=== PATIENT | female | born 1985 | race Caucasian/White ===

== ENCOUNTER 2018-05-14 06:28 | Day surgery (SDC) | payer OTHER ==
[~2018-05-14] VITALS: Ht 162.6 cm; Wt 50.1 kg
[2018-05-14] VITALS (10 sets, daily range): BP systolic 101–112; BP diastolic 57–69; PULSE 68–88; RESP 14–25; Ht 162.6 cm; Wt 50.1 kg
[~2018-05-14 06:28] MED LIST: PREN1TAB49 PO
[2018-05-14] MEDS ORDERED: SEVOFLURANE 15 MIN ONE (07:00)
[2018-05-14] MEDS ORDERED: LACTATED RINGER'S 1,000 ML IV SCH (10:00)
--- NOTE | 2018-05-14 11:55 | PREAC ---
Date/Time of Note Date/Time of Note DATE: 05/14/18 TIME: 11:52 Anesthesia Eval and Record Evaluation Time Pre-Procedure Interview DATE: 05/14/18 TIME: 11:52 Age 33 Sex female NPO: 8 hrs Preoperative diagnosis cervical dysplasia Planned procedure leep Past Medical History Past Medical History: None Surgery & Anesthesia Issues No known issue Meds Anticoagulation: No Beta Del within 24 hr: No Reason Beta Del not given: Pt. not on B-Del Discontinued Reported Medications Vits W-Ca,Fe,Fa(<1MG) () 1 Tab Tablet, 1 TAB PO DAILY 11/16/11 Current Medications Lactated Ringer's 1,000 ml @ 25 mls/hr Q24H IV ; Start 05/14/18 at 10:00 Ferric Subsulfate (monsel's) 8 gm IN SURGERY ONCE TOP ; Start 05/14/18 at 12:00; Stop 05/14/18 at 12:01 Meds reviewed: Yes Allergies Coded Allergies: No Known Allergy (Verified , 05/14/18) Allergies Reviewed: Yes Labs/Studies Labs Reviewed: Reviewed by anesthesiologist Result Diagram: 05/14/18 0850 Laboratory Tests 05/14/18 08:50 Blood Bank Test 05/14/18 08:50 Antibody Screen NEGATIVE Blood Type O NEGATIVE test: Negative Pre-procedure Exam Last vitals Vital Signs Date Temp Pulse Resp B/P (MAP) Pulse Ox O2 O2 Flow FiO2 Time Delivery Rate 05/14/18 96.8 68 16 106/58 98 Room Air 09:01 (74) Airway: Adequate mouth opening, Adequate thyromental dist Mallampati: Mallampati I Teeth: Normal Lung: Normal Heart: Normal ASA Physical Status ASA physical status: 1 Emergency: None Pre-operative Attestations Prior to commencing anesthesia and surgery, the patient was re-evaluated, there was verification of: *The patient's identity *The results of appropriate recent lab work and preoperative vital signs *The above evaluation not changing prior to induction *Anesthetic plan, risk benefits, alternative and complications discussed with patient/family; questions answered; patient/family understands, accepts and wishes to proceed. RAFAEL PASTRANA DO May 14, 2018 11:55
[2018-05-14] MEDS ORDERED: ETOMIDATE 20 MG INJ ONE (11:58)
[2018-05-14] MEDS ORDERED: LIDOCAINE 2% (SDV) 5 ML INJ ONE (11:58)
[2018-05-14] MEDS ORDERED: PROPOFOL 20 ML ONE (11:59)
[2018-05-14] MEDS ORDERED: MIDAZOLAM 1 MG/ML 2 ML INJ ONE (11:59)
[2018-05-14] MEDS ORDERED: FERRIC SUBSULFATE 8 GM VIAL TOP ONE ×2 (12:00→12:31)
[2018-05-14] MEDS ORDERED: CEFAZOLIN 1 GM INJ ONE (12:09)
[2018-05-14] MEDS ORDERED: EPHEDrine SULFATE 50 MG/5 ML SYG ONE (12:11)
[2018-05-14] MEDS ORDERED: ONDANSETRON 4 MG INJ ONE (12:11)
[2018-05-14] MEDS ORDERED: LIDOCAINE 1%/EPI (1:100,000) (MDV) 20 ML ONE (12:23)
[2018-05-14] MEDS ORDERED: LIDOCAINE 1%/EPI (1:100,000) (MDV) 20 ML INJ ONE (12:26)
[2018-05-14] MEDS ORDERED: HYDROmorphONE 1 MG/5 ML IV SYRINGE IV PRN ×2 (12:30)
--- NOTE | 2018-05-14 12:38 | SIPON ---
Date/Time of Note Date/Time of Note DATE: 05/14/18 TIME: 12:36 Operative Report Preoperative Diagnosis Cervical dysplasia Postoperative Diagnosis Same Operation/Procedure Performed LEEP Surgeon Radha Nina MD assistant laboratory director None Anesthesia: general Estimated blood loss: minimal Transfusion Required none Specimen Ectocervix and ECC Grafts/Implants none Complications none RADHA NINA MD May 14, 2018 12:38
--- NOTE | 2018-05-14 12:54 | PREOPHP ---
DATE OF ADMISSION: 05/14/2018 HISTORY OF PRESENT ILLNESS: This is a 33-year-old female, 3, para 3, last menstrual period 0 04/26/2018, admitted with history of cervical dysplasia. PAST SURGICAL HISTORY: Unremarkable. PAST SURGICAL HISTORY: Unremarkable. ALLERGIES: NO KNOWN ALLERGIES. FAMILY HISTORY: Noncontributory. PHYSICAL EXAMINATION: VITAL SIGNS: The patient is afebrile. Vital signs are stable. HEAD, NECK AND CHEST: Within normal limits. ABDOMEN: Soft, nontender, nondistended. PELVIC: Normal. EXTREMITIES: Within normal limits. NEUROLOGIC: Within normal limits. IMPRESSION: Cervical dysplasia. PLAN: Loop electrosurgical excision procedure. Risks, benefits and alternatives of procedure were e xplained to patient. The patient said she understood and gave informed consent for the procedure. Dictated By: RADHA MARTINEZ/CLAUDIA Conf#: [id number] DID#: [id number]
--- NOTE | 2018-05-14 12:57 | OPR ---
DATE OF OPERATION: 05/14/2018 PREOPERATIVE DIAGNOSIS: Cervical dysplasia. POSTOPERATIVE DIAGNOSIS: Cervical dysplasia. OPERATION PERFORMED: Loop electrosurgical excision procedure. SURGEON: Radha Ybarra MD ANESTHESIA: General. ANESTHESIOLOGIST: Cody Dyson DO PROCEDURE IN DETAILS: The patient was taken to operating room, placed on the operating table in supi ne position. After adequate general anesthesia was given, the patient was placed in dorsal lithotomy position. The area was prepared and draped in the usual sterile fashion. Speculum was placed insid e the vagina. Using a 1% solution of lidocaine with epinephrine, the cervix was injected. Next usin g a semicircular loop, a portion of endocervix was excised and sent to pathology. Using Richard cooley ret, endocervical curettage was performed and specimen was sent to pathology. Using ball tip Bovie, small bleeders were cauterized. Surgicel soaked in Monsel solution was applied to the site. All ins truments were removed. Adequate hemostasis was assured. The patient tolerated the procedure well. The patient was awakened from anesthesia and transferred to recovery room in stable condition. Estim ated blood loss was minimal. All counts were correct. Dictated By: RADHA MARTINEZ/NTS Conf#: [id number] DID#: [id number]
--- NOTE | 2018-05-14 13:15 | NUR ---
PACU NOTES: PATIENT AWAKE AND ALERT. NO COMPLAIN OF PAIN, NO BLEEDING NOTED. S/P LEEP PROCEDURE. IVF INFUSING ON RIGHT HAND # 20. 85 104/63 100% ON ROOM AIR RR 15. 99.3 , AWARE OF TRANSFER TO [facility] AND DISCHARGE HOME FOLLOW UP WITH DR. NINA IN 2 WEEKS.
--- NOTE | 2018-05-14 13:47 | PAC ---
Date/Time of Note Date/Time of Note DATE: 05/14/18 TIME: 13:47 Post-Anesthesia Notes Post-Anesthesia Note Last documented vital signs Vital Signs Date Temp Pulse Resp B/P (MAP) Pulse Ox O2 O2 Flow FiO2 Time Delivery Rate 98 72 18 110/59 98 Room Air 0 Activity: WNL Respiratory function: WNL Cardiovascular function: WNL Mental status: Baseline Pain reasonably controlled: Yes Hydration appropriate: Yes Nausea/Vomiting absent: Yes RAFAEL PASTRANA DO May 14, 2018 13:47
--- NOTE | 2018-05-14 14:08 | NUR ---
SDS: PATIENT D/C HOME IN STABLE CONDITION . VS WITHIN NORMAL LIMITS, NO PAIN OR DISCOMFORT REPORTED. ALL D/C INSTRUCTIONS PROVIDED TO PATIENT AND FAMILY. THEY VERBALIZED UNDERSTANDING AND READINESS TO GO HOME. NO BLEEDING AT INCISION SITE.
== END 2018-05-14 14:10 | disposition home or self-care (01) ==
LOC: SDS 06:28
PROVIDERS: ATTEND Obstetrics & Gynecology
DX: N87.9 Dysplasia of cervix uteri, unspecified (principal)
CPT/HCPCS: 57522; 85025; 86850; 86900; 86901; 88305; J0690; J2250; J2405; Z7610; 84703